=== PATIENT | male | born 1955 ===

== ENCOUNTER → 2023-04-07 15:08 | Outpatient (CLI) | payer MEDICARE, OTHER, SELFPAY ==
--- NOTE | 2023-04-07 15:14 | DI.RAD.S_ITS ---
PROCEDURE: XR T AND L SPINE 4 TO 5 VIEWS INDICATIONS: Fusion of spine, thoracolumbar region TECHNIQUE: 2 views acquired of the thoracolumbar spine. COMPARISON: None. FINDINGS: Bones: Extensive thoracolumbar spine fixation is seen extending from approximately T5-6 level to S2 level. Moderate rightward curvature of thoracic spine is seen with apex at T8 level and Saha angle measures 37 degrees. [id number] levoscoliosis of lumbar spine with apex at L2-3 level is seen and Saha angle measures 23.4 degrees. No gross hardware loosening or failure. No acute vertebral body compression fracture. Soft tissues: No suspicious soft tissue calcifications. IMPRESSION: S shaped scoliosis of thoracolumbar spine as above. Extensive post fusion changes of thoracic and lumbar spine. No acute compression fracture. No gross hardware loosening or failure. Dictated by: Antoni Da Silva M.D. on 04/07/2023 at 16:11 Approved by: Antoni Da Silva M.D. on 04/07/2023 at 16:13
--- NOTE | 2023-04-07 15:36 | DI.RAD.S_ITS ---
PROCEDURE: XR LUMBAR SPINE 1V INDICATIONS: PATE VIEW TECHNIQUE: 1 Pate views of the lumbar spine were acquired. COMPARISON: None. FINDINGS: Bones: 5 [id number] vertebrae are present. Extensive post fusion changes in lumbar sacral spine is seen with surgical hardware in place. No acute compression fracture. Degenerative endplate changes are noted throughout lumbar spine. No gross hardware loosening or failure. Bilateral sacroiliac joints show no erosion or ankylosis. No suspicious bony lesions. Soft tissues: Overlying bowel gas pattern is normal. No suspicious soft tissue calcifications. IMPRESSION: Extensive fusion of lumbar sacral spine. No gross hardware loosening or failure. No acute lumbar vertebral body compression fracture. No gross abnormality is seen in bilateral sacroiliac joints. Dictated by: Antoni Da Silva M.D. on 04/07/2023 at 16:13 Approved by: Antoni Da Silva M.D. on 04/07/2023 at 16:15
== END ==
PROVIDERS: PCP Family Medicine; Referring Provider Nurse Practitioner; Visit Provider Nurse Practitioner
DX: M41.9 Scoliosis, unspecified (principal); Z98.1 Arthrodesis status
CPT/HCPCS: 72020; 72083